=== PATIENT | female | born 2000 | race African-American/Black ===

== ENCOUNTER 2020-08-15 09:29 | Inpatient (IN) | payer OTHER ==
[2020-08-15] MEDS ORDERED: AMPICILLIN - 2 GM in SODIUM CHLORIDE 100 ML IVPB ONE (10:00)
[2020-08-15] MEDS ORDERED: AMPICILLIN SODIUM 2 GM VIAL ONE (10:11)
[2020-08-15 10:29] LABS: BASO % 0.3 % (0-2.0); EOS % 0.7 % (0-4.5); HEMATOCRIT 34.1 % (32.4-45.2); HEMOGLOBIN 11.4 GM/dL (10.7-15.3); LYMPH % 12.4 % (8-40); MCHC 33.3 g/dl (32.0-36.0); MEAN PLT VOLUME 9.3 fl (7.5-11.1); MONO % 13.8 % (3.8-10.2); NEUT % 72.8 % (42.8-82.8); PLATELET COUNT 223 K/MM3 (134-434); RBC 3.78 M/mm3 (3.60-5.2); RDW 17.1 % (11.6-15.6); WHITE BLOOD COUNT 8.3 K/mm3 (4.0-10.0)
[2020-08-15 10:37] LABS: INR 0.89 (0.83-1.09); PROTHROMBIN TIME (PATIENT) 10.5 SEC (9.7-13.0)
[2020-08-15 10:40] LABS: ACTIVATED PTT 26.4 SECONDS (25.2-36.5)
[2020-08-15 10:45] VITALS: BMI 26.9
[2020-08-15 11:01] LABS: BLOOD UREA NITROGEN 6.7 mg/dL (7-18); CALCIUM 8.8 mg/dL (8.5-10.1); CREATININE 0.7 mg/dL (0.55-1.3); POTASSIUM 3.8 mmol/L (3.5-5.1)
[2020-08-15] MEDS ORDERED: FENTANYL/BUPIVACAINE/NS/PF - PCEA - 50 ML DISP.SYRIN EP ONE ×2 (11:13→14:05)
[2020-08-15] MEDS ORDERED: PCA PUMP NR ONE (11:13)
[2020-08-15] MEDS ORDERED: ELECTROLYTE-148 SOLN 500 ML IV SCH (11:15)
[2020-08-15] MEDS ORDERED: ELECTROLYTE-148 SOLN 1,000 ML IV SCH (11:45)
--- NOTE | 2020-08-15 13:54 | HP ---
Past Medical History - Primary Care Physician PCP:: Ramu Mitchell - Admission Chief Complaint: Lower abdominal pain History of Present Illness: 20 yo primigravida, APOLLO 08/14/20/ EGA 40 weeks 1 day, presented with the above. No bleeding or leaking fluid per vagina History Source: Patient Limitations to Obtaining History: No Limitations - Past Medical History ...: 1 ...Para: 0 ...Term: 0 ...: 0 ...Spon : 0 ...Induced : 0 ...Living Children: 0 ...Multiple Gestation: 0 ...LMP: 11/08/19 ... Weeks Gestation by Dates: 40 ...EDC by Sono: 08/15/20 - Past Surgical History Hx Myomectomy: No Hx Transabdominal Cerclage: No - Smoking History Smoking history: Never smoked Have you smoked in the past 12 months: No - Alcohol/Substance Use Hx Alcohol Use: No - Social History Usual Living Arrangement: Yes: With Significant Other Do you think of yourself as: Straight/Heterosexual History of Recent Travel: No Home Medications - Allergies Allergies/Adverse Reactions: Allergies Allergy/AdvReac Type Severity Reaction Status Date / Time egg Allergy Severe Itching Verified 08/15/20 10:28 - Home Medications Home Medications: Ambulatory Orders Cephalexin [Keflex] 500 mg PO BID 08/15/20 Pnv No.95/Ferrous Fum/Folic AC [ Caplet] 1 tab PO DAILY 08/15/20 Family Medical History Family History: Denies Review of Systems - Review of Systems Constitutional: reports: No Symptoms Eyes: reports: No Symptoms HENT: reports: No Symptoms Neck: reports: No Symptoms Cardiovascular: reports: No Symptoms Respiratory: reports: No Symptoms Gastrointestinal: reports: No Symptoms Genitourinary: reports: No Symptoms Breasts: reports: No Symptoms Reported Musculoskeletal: reports: No Symptoms Integumentary: reports: No Symptoms Neurological: reports: No Symptoms Endocrine: reports: No Symptoms Hematology/Lymphatic: reports: No Symptoms Psychiatric: reports: No Symptoms Physical Exam - Maternity Vital Signs: Vital Signs Temperature 98.8 F 08/15/20 10:00 Pulse Rate 79 08/15/20 13:15 Respiratory Rate 17 08/15/20 13:15 Blood Pressure 96/65 08/15/20 13:15 O2 Sat by Pulse Oximetry (%) 99 08/15/20 13:15 Constitutional: Yes: Well Nourished Eyes: Yes: WNL HENT: Yes: WNL Neck: Yes: WNL Cardiovascular: Yes: WNL - Abdominal Exam/OB Number of Fetuses: Single Presentation: Vertex Contractions: Yes Regularity: Regular Intensity: Mild/Mod Monitor Mode: External Heart Rate (range): 140 Heart Rate Location: [facility] Category: I Accelerations: Uniform Decelerations: None - Vaginal Exam/OB Vaginal Bleeding: No Speculum Exam: No Dilatation (cm): 5 Effacement (%): 90 Amniotic Membrane Status: Intact Presentation: Vertex/Position Station: -1 - Physical Exam Musculoskeletal: Yes: WNL Extremities: Yes: WNL Edema: No Integumentary: Yes: WNL ...Motor Strength: WNL Psychiatric: Yes: WNL - Labs Lab Results: CBC, BMP 08/15/20 10:18 08/15/20 10:18 Hemorrhage Risk Assessment - Risk Factors Medium Risk Factors: Yes: None High Risk Factors: Yes: None Risk Score: 1 Risk Level: Medium Risk Problem List - Problems (1) 40 weeks gestation of Code(s): Z3A.40 - 40 WEEKS GESTATION OF Assessment/Plan Full term gestation in labor Admit L and D for management
[2020-08-15] MEDS ORDERED: AMPICILLIN - 1 GM in SODIUM CHLORIDE 100 ML IVPB SCH (14:00)
[2020-08-15] MEDS ORDERED: OXYTOCIN 30 UNITS in 0.9% NS 30 UNIT/500 ML INFUS.BAG IVPB SCH (14:00)
[2020-08-15] MEDS ORDERED: AMPICILLIN SODIUM 1 GM VIAL ONE (14:01)
--- NOTE | 2020-08-15 14:07 | PN ---
Progress Note (short form) - Note Progress Note: Patient comfortably on epidural analgesia VSS, afebrile EFM - Baseline 140/min, moderate variability, accelerations, no decelerations Tocos -q6 Pelvic - 7cm/100%/-1. AROM performed, clear fluid Plan - Full term gestation in labor Anticipate vaginal delivery Problem List - Problems (1) 40 weeks gestation of Code(s): Z3A.40 - 40 WEEKS GESTATION OF
[2020-08-15] MEDS ORDERED: OXYTOCIN 20 UNITS in 0.9% NS 20 UNIT/1,000 ML INFUS.BAG IV ONE (14:15)
[2020-08-15] MEDS: OXYTOCIN 20 UNITS in 0.9% NS 20 UNIT/1,000 ML INFUS.BAG IV SCH (15:15)
[2020-08-15] MEDS ORDERED: WITCH HAZEL 50% (TUCKS) 40 PAD/JAR PAD TP PRN (16:00)
[2020-08-15] MEDS ORDERED: BISACODYL 10 MG SUPP.RECT RC PRN (16:00)
[2020-08-15] MEDS ORDERED: BENZOCAINE 20% 57 GM BOTTLE TP PRN (16:00)
[2020-08-15] MEDS ORDERED: BENZOCAINE 28 GM HEMORRHOIDAL OINTMENT TP PRN (16:00)
[2020-08-15] MEDS ORDERED: METHYLERGONOVINE MALEATE 0.2 MG/1 ML AMP IM PRN (16:00)
--- NOTE | 2020-08-15 16:11 | PN ---
Delivery - Delivery Vaginal Delivery: No Problems, Spontaneous Type of Anesthesia: Epidural Episiotomy/Laceration: Right Mediolateral, Perineal Extension/lac, 2nd degree EBL (cc): 300 Delivery, Single - Stages of Labor Date 1st Stage Initiatied: 08/15/20 Date 2nd Stage Initiated: 08/15/20 Date of Delivery: 08/15/20 Date Placenta Delivered: 08/15/20 Placenta: Yes: Spontaneous, Normal Configuration - Condition of Infant Gender: Male Position: Right, OA - 1 Minute Total Score: 9 5 Minutes Total Score: 9 - Gantt Feeding Plan Initial Plan: Exclusive throughout hospitalization Benefits of Exclusively reinforced: Yes
[2020-08-15 16:21] LABS: CORD BASE EXCESS -4.5 mmol/L (0-2); CORD PCO2 51.8 mmHg (30-78); CORD pH 7.266 (7.14-7.44)
[2020-08-15 16:23] LABS: CORD BASE EXCESS -5.5 mmol/L (0-2); CORD HCO3 19.9 mmHg (20-29); CORD PCO2 38.6 mmHg (30-78); CORD pH 7.33 (7.14-7.44)
[2020-08-15] MEDS ORDERED: ceFAZolin 2 GRAM PREMIX BAG IVPB ONE (16:30)
[2020-08-15] MEDS ORDERED: CEFAZOLIN 2 GM/D5W 2 GM/50 ML ML IVPB ONE (16:48)
[2020-08-15] MEDS: DOCUSATE SODIUM 100 MG CAPSULE (FP) PO SCH (16:53)
[2020-08-15] MEDS ORDERED: FENTANYL/BUPIVACAINE/NS/PF - PCEA - 50 ML DISP.SYRIN EP SCH (17:30)
[2020-08-15] MEDS: ACETAMINOPHEN 325 MG TABLET (FP) PO PRN (19:35)
[2020-08-15] MEDS: IBUPROFEN 600 MG TABLET (FP) PO PRN (19:36)
[2020-08-16] MEDS: IBUPROFEN 600 MG TABLET (FP) PO PRN ×5 (00:38→23:55)
[2020-08-16] MEDS: ACETAMINOPHEN 325 MG TABLET (FP) PO PRN ×5 (00:39→23:56)
[2020-08-16 09:01] LABS: BASO % 0.2 % (0-2.0); EOS % 0.7 % (0-4.5); HEMATOCRIT 32.8 % (32.4-45.2); HEMOGLOBIN 10.9 GM/dL (10.7-15.3); LYMPH % 10.9 % (8-40); MCH 29.9 pg (25.7-33.7); MCHC 33.4 g/dl (32.0-36.0); MEAN CELL VOLUME 89.5 fl (80-96); MEAN PLT VOLUME 9.7 fl (7.5-11.1); MONO % 10.9 % (3.8-10.2); NEUT % 77.3 % (42.8-82.8); PLATELET COUNT 247 K/MM3 (134-434); RBC 3.66 M/mm3 (3.60-5.2); WHITE BLOOD COUNT 15.6 K/mm3 (4.0-10.0)
[2020-08-16] MEDS ORDERED: DIPHTH,PERTUSS(ACELL),TET 0.5 ML DISP.SYRIN IM ONE (10:00)
[2020-08-16] MEDS: DOCUSATE SODIUM 100 MG CAPSULE (FP) PO SCH (10:19)
[2020-08-16] MEDS: OXYTOCIN 20 UNITS in 0.9% NS 20 UNIT/1,000 ML INFUS.BAG IV SCH (17:34)
[2020-08-16] MEDS ORDERED: SENNOSIDES/DOCUSATE COMBO (SENNA PLUS) TABLET (UD) PO PRN (22:00)
--- NOTE | 2020-08-16 22:56 | PN ---
Post Progress Note Type of Delivery: Vital Signs: Vital Signs Temperature 98.8 F 08/16/20 14:00 Pulse Rate 87 08/16/20 14:00 Respiratory Rate 18 08/16/20 14:00 Blood Pressure 117/71 08/16/20 14:00 O2 Sat by Pulse Oximetry (%) 98 08/16/20 06:00 Breast Exam: Yes: Soft Uterus: Yes: Fundus Firm, Fundus below umbilicus, Non-tender Abdomen/GI: Yes: Abdomen soft, Tolerating PO Lochia: Yes: Rubra Lochia, amount: Small Extremities: Yes: Calves non-tender Perineum: Yes: Episiotomy Activity: Ambulating - Labs Labs: CBC WBC 15.6 K/mm3 (4.0-10.0) H 08/16/20 08:20 RBC 3.66 M/mm3 (3.60-5.2) 08/16/20 08:20 Hgb 10.9 GM/dL (10.7-15.3) 08/16/20 08:20 Hct 32.8 % (32.4-45.2) 08/16/20 08:20 MCV 89.5 fl (80-96) 08/16/20 08:20 MCH 29.9 pg (25.7-33.7) 08/16/20 08:20 MCHC 33.4 g/dl (32.0-36.0) 08/16/20 08:20 RDW 17.0 % (11.6-15.6) H 08/16/20 08:20 Plt Count 247 K/MM3 (134-434) 08/16/20 08:20 MPV 9.7 fl (7.5-11.1) 08/16/20 08:20 Absolute Neuts (auto) 12.1 K/mm3 (1.5-8.0) H 08/16/20 08:20 Neutrophils % 77.3 % (42.8-82.8) 08/16/20 08:20 Lymphocytes % 10.9 % (8-40) 08/16/20 08:20 Monocytes % 10.9 % (3.8-10.2) H 08/16/20 08:20 Eosinophils % 0.7 % (0-4.5) 08/16/20 08:20 Basophils % 0.2 % (0-2.0) 08/16/20 08:20 Nucleated RBC % 0 % (0-0) 08/16/20 08:20 Problem List - Problems (1) 40 weeks gestation of Code(s): Z3A.40 - 40 WEEKS GESTATION OF Assessment/Plan S/P . ppd # 1, stable Discharge home Follow up at clinic in a week
--- NOTE | 2020-08-16 23:02 | DS ---
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 Vital Signs: Vital Signs Temperature 98.5 F 08/16/20 22:00 Pulse Rate 83 08/16/20 22:00 Respiratory Rate 20 08/16/20 22:00 Blood Pressure 118/67 08/16/20 22:00 O2 Sat by Pulse Oximetry (%) 98 08/16/20 06:00 Constitutional: Yes: Well Nourished Eyes: Yes: WNL HENT: Yes: WNL Neck: Yes: WNL Cardiovascular: Yes: WNL Respiratory: Yes: WNL Gastrointestinal: Yes: WNL Renal/: Yes: WNL Pelvis: Yes: WNL External Genitalia: Yes: Normal Vaginal Exam: Yes: Normal Cervix: Yes: Normal Uterus: Yes: Normal Adnexa: Normal: Bilateral ....Post : Yes: Uterus firm, Uterus non-tender, Slight lochia rubra Breast(s): Yes: WNL Musculoskeletal: Yes: WNL Extremities: Yes: WNL Edema: No Integumentary: Yes: WNL Wound/Incision: Yes: Clean/Dry Neurological: Yes: WNL ...Motor Strength: WNL Psychiatric: Yes: WNL Labs: CBC, BMP 08/16/20 08:20 08/15/20 10:18 Delivery - Delivery Vaginal Delivery: No Problems, Spontaneous Type of Anesthesia: Epidural Episiotomy/Laceration: Right Mediolateral, Perineal Extension/lac, 2nd degree EBL (cc): 300 Delivery, Single - Stages of Labor Date 1st Stage Initiatied: 08/15/20 Time 1st Stage Initiated: 20:00 Date 2nd Stage Initiated: 08/15/20 Time 2nd Stage Initiated: 14:00 Date of Delivery: 08/15/20 Time of Delivery: 15:01 Time Placenta Delivered: 15:10 Placenta: Yes: Spontaneous, Normal Configuration - 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 Gender: Male Weight: 3.402 kg Position: Right, OA Total Hours ROM (Hrs/Mins): 1 hour, 26 minutes - 1 Minute Total Score: 9 5 Minutes Total Score: 9 - Council Feeding Plan Initial Plan: Exclusive throughout hospitalization Benefits of Exclusively reinforced: Yes Discharge Summary Problems reviewed: Yes Reason For Visit: LABOR ADMISSION Current Active Problems 40 weeks gestation of (Acute) Condition: Stable - Instructions Disposition: HOME - Home Medications Comprehensive Discharge Medication List: Ambulatory Orders Cephalexin [Keflex] 500 mg PO BID 08/15/20 Pnv No.95/Ferrous Fum/Folic AC [ Caplet] 1 tab PO DAILY 08/15/20
[2020-08-17] MEDS: DOCUSATE SODIUM 100 MG CAPSULE (FP) PO SCH (10:14)
[2020-08-17 11:09] VITALS: BP 112/70; PULSE 54; TEMP 98.2
== END 2020-08-17 13:00 | disposition home or self-care (01) | DRG 560 ==
LOC: JDEL 09:29 → JLDR 09:52 → J3N 18:05
PROVIDERS: ADMIT Obstetrics & Gynecology; ATTEND Obstetrics & Gynecology
PROC: 10907ZC Drainage of Amniotic Fluid, Therapeutic from Products of Conception, Via Natural or Artificial Opening (ICD-10-PCS; principal; 2020-08-15)
PROC: 10E0XZZ Delivery of Products of Conception, External Approach (ICD-10-PCS; 2020-08-15)
PROC: 0W8NXZZ Division of Female Perineum, External Approach (ICD-10-PCS; 2020-08-15)
DX: O48.0 Post-term pregnancy (principal); O70.1 Second degree perineal laceration during delivery; O99.824 Streptococcus B carrier state complicating childbirth; Z3A.40 40 weeks gestation of pregnancy; Z37.0 Single live birth
CPT/HCPCS: 36415; 36600; 59409; 80048; 82803; 85025; 85461; 85610; 85730; 86780; 86850; 86870; 86900; 86901; 86902; 86999; 87389; 90715; U0003